=== PATIENT | female | born 1940 | race Caucasian/White ===

== ENCOUNTER 2018-12-14 17:22 | Emergency (ER) | payer MEDICARE, OTHER ==
[~2018-12-14] VITALS: Ht 160 cm; Wt 79.8 kg
[~2018-12-14 17:22] MED LIST: CLOT30CR24 TOP; TRIA15CR55 TOP
[2018-12-14 17:47] VITALS: BP 171/79; PULSE 88; RESP 18; Ht 160 cm; Wt 79.8 kg
== END 2018-12-14 17:54 | disposition home or self-care (01) ==
LOC: E/R 17:22
DX: B35.3 Tinea pedis (principal); I10 Essential (primary) hypertension; E11.9 Type 2 diabetes mellitus without complications
CPT/HCPCS: 99283